=== PATIENT | male | born 1970 | race Caucasian/White ===

== ENCOUNTER 2022-01-13 05:30 | Day surgery (SDC) | payer MEDICARE, MEDICAID ==
[~2022-01-13] VITALS: Ht 177.8 cm; Wt 131.1 kg
[2022-01-13] MEDS ORDERED: CEFAZOLIN 1 GM IVPB PREMIX 50 ML IV ONE (06:51)
[2022-01-13] MEDS ORDERED: CEFAZOLIN SOD 1 GM in D5W 50 ML IV ONE (07:00)
[2022-01-13] MEDS ORDERED: METOCLOPRAMIDE HCL 10 MG/2 ML VIAL IVP PRN (08:00)
[2022-01-13] MEDS ORDERED: hydrALAZINE HCL 20 MG/ML VIAL IVP PRN (08:00)
[2022-01-13] MEDS ORDERED: MEPERIDINE HCL/PF 25 MG/ML DISP.SYRIN IVP PRN (08:00)
[2022-01-13] MEDS ORDERED: LABETALOL 100 MG/ 20ML VIAL IVP PRN (08:00)
[2022-01-13] MEDS ORDERED: HYDROmorphone 1 MG/ML INJ. CARTRIDGE IVP PRN ×3 (08:00→08:45)
[2022-01-13] MEDS ORDERED: LR 1,000 ML IV SCH (08:00)
[2022-01-13] MEDS ORDERED: ACETAMINOPHEN I.V. 1000 MG 100 ML IV ONE (08:11)
[2022-01-13] MEDS ORDERED: HYDROcodone/ACETAMIN 5-325 MG TAB (NORCO/ VICODIN) PO PRN ×2 (08:45)
[2022-01-13] MEDS ORDERED: D5/0.45 NS 1,000 ML IV SCH (08:45)
[2022-01-13] MEDS ORDERED: DESFLURANE 15 MIN GAS INH ONE (08:47)
[2022-01-13] MEDS ORDERED: PROPOFOL 200MG/ 20ML VIAL (DIPRIVAN) IV ONE (08:47)
[2022-01-13] MEDS ORDERED: BUPIVACAINE /PF 0.25% 30 ML VIAL INJ ONE (08:47)
[2022-01-13] MEDS ORDERED: MIDAZOLAM HCL 5 MG/ML VIAL (VERSED) IV ONE (08:47)
[2022-01-13] MEDS ORDERED: LIDOCAINE 1% 10 MG/ML, 20 ML MDV ONE (08:47)
[2022-01-13] MEDS ORDERED: CEFAZOLIN 2 GM IVPB PREMIX 50 ML IV ONE (08:47)
[2022-01-13] MEDS ORDERED: fentaNYL CITRATE 250 MCG/5 ML AMP ONE (08:47)
[2022-01-13] MEDS ORDERED: NS IRRIG SOLN 1000 ML IR ONE (08:47)
[2022-01-13] MEDS ORDERED: ONDANSETRON HCL 4 MG/2 ML VIAL ONE (08:47)
[2022-01-13] MEDS ORDERED: KETOROLAC TROMETHAMINE 30 MG VIAL ONE (08:47)
[2022-01-13] MEDS ORDERED: NS 1000 ML IV.SOLN IV ONE (08:47)
[2022-01-13] MEDS ORDERED: NS 50 ML BAG IV ONE (08:47)
[2022-01-13] MEDS ORDERED: ROCURONIUM BROMIDE 10 MG/ML (ZEMURON) ONE (08:47)
[2022-01-13] MEDS ORDERED: LR 1,000 ML IV.SOLN IV ONE (08:47)
[2022-01-13 12:23] VITALS: BP_SYST 103
== END 2022-01-13 13:10 | disposition home or self-care (01) ==
LOC: SDS 05:30 → SMU 05:30 → SDS 13:10
PROVIDERS: ATTEND Colon & Rectal Surgery
DX: K80.10 Calculus of gallbladder with chronic cholecystitis without obstruction (principal); M1A.9XX0 Chronic gout, unspecified, without tophus (tophi); K80.20 Calculus of gallbladder without cholecystitis without obstruction; R10.11 Right upper quadrant pain; G89.29 Other chronic pain; E11.65 Type 2 diabetes mellitus with hyperglycemia; E11.42 Type 2 diabetes mellitus with diabetic polyneuropathy; E11.628 Type 2 diabetes mellitus with other skin complications; E78.2 Mixed hyperlipidemia; R79.82 Elevated C-reactive protein (CRP); F33.41 Major depressive disorder, recurrent, in partial remission; E55.9 Vitamin D deficiency, unspecified; F39 Unspecified mood [affective] disorder; L21.9 Seborrheic dermatitis, unspecified; N28.89 Other specified disorders of kidney and ureter; D84.81 Immunodeficiency due to conditions classified elsewhere; E66.01 Morbid (severe) obesity due to excess calories; Z68.41 Body mass index [BMI] 40.0-44.9, adult; B00.9 Herpesviral infection, unspecified; Z20.822 Contact with and (suspected) exposure to COVID-19
CPT/HCPCS: 36415 ×2; 47563; 74300; 82948; 82962; 87426; 87635; 88304; C1727; C1758; J0131; J0690 ×2; J1885; J2001; J2250; J2405; J2704; J3010; J3490; J7030; J7120; Q9967; U0003; 76000; J7060